=== PATIENT | male | born 1960 | race Caucasian/White ===

== ENCOUNTER 2021-08-28 02:21 | Emergency (ER) | payer OTHER ==
[~2021-08-28] VITALS: Ht 188 cm; Wt 95.3 kg
[2021-08-28] MEDS ORDERED: CEFAZOLIN 2 G in IV DEXTROSE 5% 100 ML IV ONE (03:15)
[2021-08-28 03:21] LABS: HEMATOCRIT 38.5 % (36.7-47.1); MEAN CORPUSCULAR HEMOGLOBIN 29.1 uug (23.8-33.4); MEAN CORPUSCULAR VOLUME 87.8 fL (73.0-96.2); PLATELET COUNT (AUTO) 304 K/uL (152-348)
[2021-08-28 03:28] LABS: CREATININE 1.3 mg/dL (0.6-1.3); POTASSIUM 4.9 mmol/L (3.5-5.1)
[2021-08-28] MEDS ORDERED: CEFAZOLIN 1 G VIAL ONE (03:31)
[2021-08-28] MEDS ORDERED: ERYT-131 PO (03:39)
[2021-08-28] MEDS ORDERED: OXYC-128 PO (03:39)
--- NOTE | 2021-08-28 04:43 | NUR ---
IV removed. Catheter intact and site benign. Pressure and 4x4 gauze applied to site. No bleeding noted.
--- NOTE | 2021-08-28 04:44 | NUR ---
FIBERGLASS STIRRUP SPLINT TO RIGHT LEG. PT HAS HIS OWN CRUTCHES AND SHOWED RETURN DEMONSTRATION ON PROPER USE. PATIENT TAKING AN UBER HOME. Patient discharged to home in stable condition. Written and verbal after care instructions given. Patient verbalizes understanding of instructions. Stressed follow up or return to ER for worsening s/s.
[2021-08-28 04:45] VITALS: BP 144/86
== END 2021-08-28 04:47 | disposition home or self-care (01) ==
LOC: ER 02:31
DX: L03.115 Cellulitis of right lower limb (principal); S82.61XD Displaced fracture of lateral malleolus of right fibula, subsequent encounter for closed fracture with routine healing; X58.XXXD Exposure to other specified factors, subsequent encounter
CPT/HCPCS: 29515; 36415; 80048; 85025; 85379; 93971; 96365; 99284; J0690; J7060; A4663